=== PATIENT | female | born 1970 | race Two or more races ===

== ENCOUNTER → 2022-12-13 | Emergency (ER) | payer OTHER ==
[~2022-12-13] VITALS: Ht 170.2 cm; Wt 79.4 kg
[~2022-12-13] MED LIST: LOSARTAN POTASS25 MG PO; PERCOCET 5-3251 EACH PO; TOPROL XL50 M1 PO
== END | disposition home or self-care (01) ==
LOC: ER 11:11
DX: K62.89 Other specified diseases of anus and rectum (principal); I10 Essential (primary) hypertension; K60.2 Anal fissure, unspecified